=== PATIENT | female | born 1945 | race Caucasian/White ===

== ENCOUNTER → 2017-01-15 | Outpatient (CLI) | payer MEDICARE, OTHER ==
[~2017-01-15] MED LIST: ACET-66 PO; AMLO-512 PO; ASPI-1146 PO; ATOR10TA84 PO; BUDE10.2 IH; BUPR100SR PO; DOCU250C91 PO; DULO60CA44 PO; LEVO50TA4 PO; LOSA50TA37 PO; MIRALAX PO; MULT-68 PO; NAPR-58 PO; OMEG300C3 PO; OMEP20 PO; SENN-161 PO; TIOT185 IH; TRAZ-147 PO; TYLENOL PO; VARE1TAB22 PO; XALA2.5OS OU
== END | disposition home or self-care (01) ==
LOC: RADPV 09:46
PROVIDERS: ATTEND Orthopaedic Surgery
DX: M17.12 Unilateral primary osteoarthritis, left knee (principal); M11.262 Other chondrocalcinosis, left knee; M85.862 Other specified disorders of bone density and structure, left lower leg; M85.861 Other specified disorders of bone density and structure, right lower leg; Z96.651 Presence of right artificial knee joint